=== PATIENT | female | born 1985 | race American Indian/Alaskan Native ===

== ENCOUNTER 2019-01-23 09:13 | Emergency (ER) | payer OTHER ==
[2019-01-23] MEDS ORDERED: APRESOLINE IV ONE (10:38)
--- NOTE | 2019-01-23 10:45 | Emergency Department Report ---
ED Headache HPI - General Chief Complaint: Headache Stated Complaint: HEADACHE/DIZZINESS Time Seen by Provider: 01/23/19 10:26 Source: patient Exam Limitations: no limitations - History of Present Illness Initial Comments: Patient is a 33-year-old female that presents emergency with complaints of a headache. She states had been going on for 4 days and is worsening. Patient is also complaining of dizziness. Patient denies pain in her neck. Patient denies change in her headache with movement of her head and neck. Patient denies fever and chills. Patient states the pain is left occipital. Patient states the pain is not rating. Patient states the pain is 10 out of 10. Patient states she has tried ibuprofen and Tylenol with minimal relief. Patient denies blurred vision. Timing/Duration: constant, increasing Quality: severe Head Injury Location: occipital Recent Head Trauma: no recent headache/trauma, chronic headaches Modifying Factors: improves with: medication, rest Associated Symptoms: denies symptoms, nausea/vomiting. denies: confusion, fatigue, facial pain, fever/chills, flushing, loss of consciousness Allergies/Adverse Reactions: Allergies No Known Allergies Allergy (Unverified 03/19/15 10:00) Home Medications: Ambulatory Orders Docusate Sodium [Colace] 100 mg PO BID PRN #30 capsule 03/19/15 Magnesium Hydroxide [Milk of Magnesia] 2,400 mg PO QDAY #1 bottle 03/19/15 Psyllium Husk [Metamucil] 0.52 gm PO BID #30 capsule 03/19/15 methylPREDNISolone [Medrol] 4 mg PO DAILY 6 Days #1 tab.ds.pk 01/23/19 ED Review of Systems ROS: Stated complaint: HEADACHE/DIZZINESS Other details as noted in HPI Constitutional: denies: chills, fever Eyes: denies: eye pain, eye discharge, vision change ENT: denies: ear pain, throat pain Respiratory: denies: cough, shortness of breath, wheezing Cardiovascular: denies: chest pain, palpitations Endocrine: no symptoms reported Gastrointestinal: denies: abdominal pain, nausea, diarrhea Genitourinary: denies: urgency, dysuria, discharge Musculoskeletal: denies: back pain, joint swelling, arthralgia Skin: denies: rash, lesions Neurological: headache. denies: weakness, paresthesias Psychiatric: denies: anxiety, depression Hematological/Lymphatic: denies: easy bleeding, easy bruising ED Past Medical Hx - Past Medical History Previous Medical History?: Yes Hx Hypertension: Yes - Surgical History Past Surgical History?: Yes Hx Cholecystectomy: Yes Additional Surgical History: gallbladder removed - Family History Family history: no significant - Social History Smoking Status: Never Smoker Substance Use Type: Prescribed - Medications Home Medications: Home Medications Medication Instructions Recorded Confirmed Last Taken Type Docusate Sodium [Colace] 100 mg PO BID PRN #30 capsule 03/19/15 Unknown Rx Magnesium Hydroxide [Milk of 2,400 mg PO QDAY #1 bottle 03/19/15 Unknown Rx Magnesia] Psyllium Husk [Metamucil] 0.52 gm PO BID #30 capsule 03/19/15 Unknown Rx methylPREDNISolone [Medrol] 4 mg PO DAILY 6 Days #1 tab.ds.pk 01/23/19 Unknown Rx ED Physical Exam - General Limitations: No Limitations General appearance: alert, in no apparent distress - Head Head exam: Present: atraumatic, normocephalic - Eye Eye exam: Present: normal appearance, PERRL Pupils: Present: normal accommodation - ENT ENT exam: Present: mucous membranes moist, other (enlarged nasal turbinates. Left greater than right) - Neck Neck exam: Present: normal inspection - Respiratory Respiratory exam: Present: normal lung sounds bilaterally. Absent: respiratory distress - Cardiovascular Cardiovascular Exam: Present: regular rate, normal rhythm. Absent: systolic murmur, diastolic murmur, rubs, gallop - GI/Abdominal GI/Abdominal exam: Present: soft, normal bowel sounds. Absent: distended, tenderness, guarding - Extremities Exam Extremities exam: Present: normal inspection - Back Exam Back exam: Present: normal inspection - Neurological Exam Neurological exam: Present: alert, oriented X3 - Psychiatric Psychiatric exam: Present: normal affect, normal mood - Skin Skin exam: Present: warm, dry, intact, normal color. Absent: rash ED Course Vital Signs 01/23/19 01/23/19 01/23/19 09:18 10:28 10:30 Temperature 98.7 F Pulse Rate 78 Respiratory 18 Rate Blood Pressure 204/102 Blood Pressure [Left] O2 Sat by Pulse 99 100 98 Oximetry 01/23/19 01/23/19 01/23/19 10:45 11:01 11:15 Temperature Pulse Rate Respiratory Rate Blood Pressure 196/99 196/99 196/99 Blood Pressure [Left] O2 Sat by Pulse 100 100 100 Oximetry 01/23/19 01/23/19 01/23/19 11:31 11:45 11:51 Temperature 98.4 F Pulse Rate 57 L Respiratory 16 Rate Blood Pressure 196/99 140/64 Blood Pressure 140/64 [Left] O2 Sat by Pulse 100 100 100 Oximetry 01/23/19 01/23/19 01/23/19 11:53 12:01 12:15 Temperature Pulse Rate 57 L Respiratory Rate Blood Pressure 140/64 140/64 140/64 Blood Pressure [Left] O2 Sat by Pulse 99 99 Oximetry 01/23/19 13:22 Temperature Pulse Rate 63 Respiratory 15 Rate Blood Pressure Blood Pressure 153/80 [Left] O2 Sat by Pulse 100 Oximetry - Reevaluation(s) Reevaluation #1: Initial evaluation done. Patient found have hypertension. Patient will be given 20 of hydralazine. 01/23/19 10:26 Patient's blood pressure improved on its own. We will hold hydralazine treat patient's headache with IV meds. 01/23/19 11:37 Patient's pain is now at 4 out of 10. She states dizziness has resolved. Patient states she is able to ambulate and move around without problem. 01/23/19 13:10 - Reevaluation #2: Discussed all results with patient. Patient is stable for discharge. Patient will be discharged home. Patient given discharge instructions. Patient voiced understanding of discharge instructions. 01/23/19 13:54 ED Medical Decision Making - Lab Data Result diagrams: 01/23/19 11:02 01/23/19 11:02 - Radiology Data Radiology results: report reviewed PROCEDURE: CT HEAD/BRAIN WO CON TECHNIQUE: Axial images of the head obtained without intravenous contrast. HISTORY: armstrong COMPARISONS: No priors FINDINGS: Ventricles are normal in size and configuration. There is no evidence of intracranial mass or mass effect. No intracranial hemorrhage or hematoma. No edema or sulcal effacement. The calvarium is intact. Visualized paranasal sinuses and mastoid air cells are clear. IMPRESSION: No acute intracranial pathology.. - Medical Decision Making H&H 33-year-old female Emergency room with complaints of headache. Labs unremarkable. Patient's CT negative. Patient's clinical findings consistent with a sinus headache and sinus inflammation. Patient will be given a steroid pack. Patient responded well to therapy. Patient's headache improved with wilfred atment. Patient stable for discharge. Patient given discharge instructions. - Differential Diagnosis headache. Sinus headache. Sinus inflammation. Critical care attestation.: If time is entered above; I have spent that time in minutes in the direct care of this critically ill patient, excluding procedure time. ED Disposition Clinical Impression: Dizziness, Sinus headache Headache Qualifiers: Headache type: unspecified Headache chronicity pattern: acute headache Intractability: not intractable Qualified Code(s): R51 - Headache Disposition: DC- TO HOME OR SELFCARE Is pt being admited?: No Does the pt Need Aspirin: No Condition: Stable Instructions: Sinusitis (ED), Acute Headache (ED) Additional Instructions: Patient follow up with primary care in 2-3 days. Patient to return to ER if condition worsens. Patient to take Tylenol or ibuprofen when necessary for pain. Patient to rest. Patient to take meds as directed. Continue all home medications. Patient to increase water. Prescriptions: methylPREDNISolone [Medrol] 4 mg PO DAILY 6 Days #1 tab.ds.pk Referrals: PRIMARY [facility] [Referring] - 2-3 Days Time of Disposition: 13:53
[2019-01-23 11:55] LABS: Hemoglobin 14.4 gm/dl (10.1-14.3); Mean Corpuscular HGB Conc 35 % (30-34); Mean Corpuscular Volume 87 fl (79-97); Platelet Count 337 K/mm3 (140-440); Red Blood Count 4.73 M/mm3 (3.65-5.03); Red Cell Distribution Width 14.4 % (13.2-15.2)
[2019-01-23] MEDS ORDERED: SOLU-Medrol IV ONE (12:01)
[2019-01-23] MEDS ORDERED: PHENERGAN PO ONE (12:01)
[2019-01-23] MEDS ORDERED: BENADRYL IV ONE (12:01)
[2019-01-23 12:22] LABS: Alanine Aminotransferase 13 units/L (7-56); Albumin 4.2 g/dL (3.9-5); BUN/Creatinine Ratio 20; Blood Urea Nitrogen 10 mg/dL (7-17); Hemolysis Index 3
--- NOTE | 2019-01-23 13:06 | Cat Scan Report ---
PROCEDURE: CT HEAD/BRAIN WO CON TECHNIQUE: Axial images of the head obtained without intravenous contrast. HISTORY: armstrong COMPARISONS: No priors FINDINGS: Ventricles are normal in size and configuration. There is no evidence of intracranial mass or mass effect. No intracranial hemorrhage or hematoma. No edema or sulcal effacement. The calvarium is intact. Visualized paranasal sinuses and mastoid air cells are clear. IMPRESSION: No acute intracranial pathology.. This document is electronically signed by Bryan Ria MD., Jan 23 2019 01:04:41 PM ET
[2019-01-23 13:22] VITALS: BP 153/80
== END 2019-01-23 14:17 | disposition home or self-care (01) ==
LOC: ED 09:13
DX: R51 Headache (principal); R42 Dizziness and giddiness; I10 Essential (primary) hypertension; Z90.49 Acquired absence of other specified parts of digestive tract; Z79.899 Other long term (current) drug therapy
CPT/HCPCS: 36415; 70450; 80053; 84703; 85027; 93005; 93010; 96374; 96375; 99284; J1200; J2930; Q0169; J0360

== ENCOUNTER 2019-01-26 14:33 | Emergency (ER) | payer SELFPAY ==
[2019-01-26] MEDS ORDERED: NORCO 10/325 PO ONE (14:42)
--- NOTE | 2019-01-26 14:43 | Emergency Department Report ---
Blank Doc - Documentation Documentation: This is a 33-year-old female that presents with dizziness. Denies any headache This initial assessment/diagnostic orders/clinical plan/treatment(s) is/are subject to change based on patient's health status, clinical progression and re- assessment by fellow clinical providers in the ED. Further treatment and workup at subsequent clinical providers discretion. Patient/guardians urged not to elope from the ED as their condition may be serious if not clinically assessed and managed. Initial orders include: 1- Patient sent to [facility] for further evaluation and treatment. 2- labs 3- orthostatic vitals
[2019-01-26 14:59] LABS: Basophils % (Auto) 0.8 % (0.0-1.8); Eosinophils # (Auto) 0.1 K/mm3 (0.0-0.4); Eosinophils % (Auto) 0.9 % (0.0-4.3); Hemoglobin 15.7 gm/dl (10.1-14.3); Lymphocytes # (Auto) 1.7 K/mm3 (1.2-5.4); Mean Corpuscular HGB Conc 34 % (30-34); Mean Corpuscular Volume 88 fl (79-97); Monocytes # (Auto) 0.6 K/mm3 (0.0-0.8); Monocytes % (Auto) 9.4 % (0.0-7.3); Platelet Count 369 K/mm3 (140-440); Red Blood Count 5.24 M/mm3 (3.65-5.03); Red Cell Distribution Width 14.3 % (13.2-15.2)
[2019-01-26 15:15] LABS: BUN/Creatinine Ratio 26; Blood Urea Nitrogen 18 mg/dL (7-17); Hemolysis Index 9
[2019-01-26] MEDS ORDERED: ANTIVERT PO ONE (16:01)
--- NOTE | 2019-01-26 16:06 | Emergency Department Report ---
ED General Adult HPI - General Chief complaint: Medical Clearance Stated complaint: DIZZINESS Time Seen by Provider: 01/26/19 14:39 Source: patient Mode of arrival: Ambulatory Limitations: No Limitations - History of Present Illness Initial comments: Patient presents to the emergency department with a chief complaint of dizziness. The patient states she was here 3 days ago and diagnosed with a sinus headache and given a Medrol Dosepak which is sent with her headaches but she now is dizzy. Patient states that any movement of her head or standing up quickly makes her dizzy and describes the room spinning. Patient denies any chest pain, for his breath, slurred speech, weakness. -: Sudden Radiation: non-radiation Severity scale (0 -10): 0 Consistency: intermittent Improves with: rest Worsens with: movement Associated Symptoms: denies other symptoms Treatments Prior to Arrival: none - Related Data Previous Rx's Medication Instructions Recorded Last Taken Type Docusate Sodium [Colace] 100 mg PO BID PRN #30 capsule 03/19/15 Unknown Rx Magnesium Hydroxide [Milk of 2,400 mg PO QDAY #1 bottle 03/19/15 Unknown Rx Magnesia] Psyllium Husk [Metamucil] 0.52 gm PO BID #30 capsule 03/19/15 Unknown Rx Ibuprofen 800 mg PO Q8HR PRN #30 tablet 01/23/19 Unknown Rx methylPREDNISolone [Medrol] 4 mg PO DAILY 6 Days #1 tab.ds.pk 01/23/19 Unknown Rx Meclizine [Antivert] 25 mg PO TID PRN #30 tablet 01/26/19 Unknown Rx Allergies Allergy/AdvReac Type Severity Reaction Status Date / Time No Known Allergies Allergy Unverified 03/19/15 10:00 ED Review of Systems ROS: Stated complaint: DIZZINESS Other details as noted in HPI Comment: All other systems reviewed and negative Constitutional: denies: chills, fever Eyes: denies: eye pain, eye discharge, vision change ENT: denies: ear pain, throat pain Respiratory: denies: cough, shortness of breath, wheezing Cardiovascular: denies: chest pain, palpitations Endocrine: no symptoms reported Gastrointestinal: denies: abdominal pain, nausea, diarrhea Genitourinary: denies: urgency, dysuria, discharge Musculoskeletal: denies: back pain, joint swelling, arthralgia Skin: denies: rash, lesions Neurological: vertigo. denies: headache, weakness, paresthesias Psychiatric: denies: anxiety, depression Hematological/Lymphatic: denies: easy bleeding, easy bruising ED Past Medical Hx - Past Medical History Previous Medical History?: Yes Hx Hypertension: Yes - Surgical History Hx Cholecystectomy: Yes Additional Surgical History: gallbladder removed - Social History Smoking Status: Never Smoker Substance Use Type: None - Medications Home Medications: Home Medications Medication Instructions Recorded Confirmed Last Taken Type Docusate Sodium [Colace] 100 mg PO BID PRN #30 capsule 03/19/15 Unknown Rx Magnesium Hydroxide [Milk of 2,400 mg PO QDAY #1 bottle 03/19/15 Unknown Rx Magnesia] Psyllium Husk [Metamucil] 0.52 gm PO BID #30 capsule 03/19/15 Unknown Rx Ibuprofen 800 mg PO Q8HR PRN #30 tablet 01/23/19 Unknown Rx methylPREDNISolone [Medrol] 4 mg PO DAILY 6 Days #1 tab.ds.pk 01/23/19 Unknown Rx Meclizine [Antivert] 25 mg PO TID PRN #30 tablet 01/26/19 Unknown Rx ED Physical Exam - General Limitations: No Limitations General appearance: alert, in no apparent distress - Head Head exam: Present: atraumatic, normocephalic - Eye Eye exam: Present: normal appearance, PERRL, EOMI - ENT ENT exam: Present: mucous membranes moist, TM's normal bilaterally, normal external ear exam - Neck Neck exam: Present: normal inspection - Respiratory Respiratory exam: Present: normal lung sounds bilaterally. Absent: respiratory distress, wheezes, rales - Cardiovascular Cardiovascular Exam: Present: regular rate, normal rhythm. Absent: systolic murmur, diastolic murmur, rubs, gallop - GI/Abdominal GI/Abdominal exam: Present: soft, normal bowel sounds. Absent: distended, tenderness - Extremities Exam Extremities exam: Present: normal inspection - Back Exam Back exam: Present: normal inspection - Neurological Exam Neurological exam: Present: alert, oriented X3, CN II-XII intact, other (able to re-create symptoms with rapid eye and head movement). Absent: motor sensory deficit - Psychiatric Psychiatric exam: Present: normal affect, normal mood - Skin Skin exam: Present: warm, dry, intact, normal color. Absent: rash ED Course Vital Signs 01/26/19 14:38 Temperature 98.2 F Pulse Rate 70 Respiratory 16 Rate Blood Pressure 166/88 O2 Sat by Pulse 98 Oximetry ED Medical Decision Making - Lab Data Result diagrams: 01/26/19 14:48 01/26/19 14:48 Lab Results 01/26/19 01/26/19 01/26/19 Range/Units 14:48 14:48 14:48 WBC 6.0 (4.5-11.0) K/mm3 RBC 5.24 H (3.65-5.03) M/mm3 Hgb 15.7 H (10.1-14.3) gm/dl Hct 46.0 H (30.3-42.9) % MCV 88 (79-97) fl MCH 30 (28-32) pg MCHC 34 (30-34) % RDW 14.3 (13.2-15.2) % Plt Count 369 (140-440) K/mm3 Lymph % (Auto) 28.0 (13.4-35.0) % [place] % (Auto) 9.4 H (0.0-7.3) % Eos % (Auto) 0.9 (0.0-4.3) % Baso % (Auto) 0.8 (0.0-1.8) % Lymph # 1.7 (1.2-5.4) K/mm3 [place] # 0.6 (0.0-0.8) K/mm3 Eos # 0.1 (0.0-0.4) K/mm3 Baso # 0.0 (0.0-0.1) K/mm3 Seg Neutrophils % 60.9 (40.0-70.0) % Seg Neutrophils # 3.7 (1.8-7.7) K/mm3 Sodium 139 (137-145) mmol/L Potassium 3.7 (3.6-5.0) mmol/L Chloride 99.5 (98-107) mmol/L Carbon Dioxide 25 (22-30) mmol/L Anion Gap 18 mmol/L BUN 18 H (7-17) mg/dL Creatinine 0.7 (0.7-1.2) mg/dL Estimated GFR > 60 ml/min BUN/Creatinine Ratio 26 % Glucose 139 H (65-100) mg/dL Calcium 9.0 (8.4-10.2) mg/dL HCG, Qual Negative (Negative) - Radiology Data Radiology results: report reviewed - Medical Decision Making CT reviewed from 01/23/2019 Patient states a Medrol Dosepak is actually helped her headaches Reviewing the side effects for Medrol shows that it can cause vertigo Critical care attestation.: If time is entered above; I have spent that time in minutes in the direct care of this critically ill patient, excluding procedure time. ED Disposition Clinical Impression: Vertigo Disposition: DC-01 TO HOME OR SELFCARE Is pt being admited?: No Does the pt Need Aspirin: No Condition: Stable Instructions: Vertigo (ED) Additional Instructions: return if worse Prescriptions: Meclizine [Antivert] 25 mg PO TID PRN #30 tablet PRN Reason: Vertigo Referrals: [facility] [Provider Group] - 3-5 Days [facility] [Provider Group] - 3-5 Days Time of Disposition: 16:04
[2019-01-26 16:17] VITALS: BP 156/81
== END 2019-01-26 16:16 | disposition home or self-care (01) ==
LOC: ED 14:33
DX: R42 Dizziness and giddiness (principal); I10 Essential (primary) hypertension
CPT/HCPCS: 36415; 80048; 84703; 85025; 99283

== ENCOUNTER 2019-01-31 18:18 | Emergency (ER) | payer SELFPAY ==
[2019-01-31] MEDS ORDERED: CATAPRES PO ONE (18:27)
--- NOTE | 2019-01-31 18:27 | Emergency Department Report ---
Blank Doc - Documentation Documentation: This is a 33-year-old female that presents with headache and uncontrolled HTN. This initial assessment/diagnostic orders/clinical plan/treatment(s) is/are subject to change based on patient's health status, clinical progression and re- assessment by fellow clinical providers in the ED. Further treatment and workup at subsequent clinical providers discretion. Patient/guardians urged not to elope from the ED as their condition may be serious if not clinically assessed and managed. Initial orders include: 1- Patient sent to [facility] for further evaluation and treatment. 2- labs 3- CT head 4- Catapress 5- RN to repeat vitals q30 mins
[2019-01-31 19:27] LABS: Basophils # (Auto) 0.1 K/mm3 (0.0-0.1); Basophils % (Auto) 0.8 % (0.0-1.8); Eosinophils # (Auto) 0.1 K/mm3 (0.0-0.4); Eosinophils % (Auto) 1.6 % (0.0-4.3); Hematocrit 38.8 % (30.3-42.9); Hemoglobin 13.8 gm/dl (10.1-14.3); Lymphocytes # (Auto) 1.2 K/mm3 (1.2-5.4); Lymphocytes % (Auto) 17.9 % (13.4-35.0); Mean Corpuscular HGB Conc 36 % (30-34); Mean Corpuscular Volume 88 fl (79-97); Monocytes # (Auto) 0.8 K/mm3 (0.0-0.8); Platelet Count 304 K/mm3 (140-440); Red Blood Count 4.42 M/mm3 (3.65-5.03); Red Cell Distribution Width 14.3 % (13.2-15.2)
[2019-01-31 19:46] LABS: BUN/Creatinine Ratio 23; Blood Urea Nitrogen 14 mg/dL (7-17); Hemolysis Index 24
[2019-01-31] MEDS ORDERED: TORADOL IM ONE (20:43)
--- NOTE | 2019-01-31 21:10 | Emergency Department Report ---
ED Headache HPI - General Chief Complaint: Headache Stated Complaint: DIZZY/HEADACHE SEVERE Time Seen by Provider: 01/31/19 18:25 Source: patient Exam Limitations: no limitations - History of Present Illness Initial Comments: 33-year-old female with a past medical history of hypertension and obesity presents to the hospital complaining of headache and elevated blood pressure. 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 She checked her blood pressure and it was extremely high. Patient states she's been compliant with her metoprolol 100 mg twice a day losartan 100 mg daily. She also denies blurred vision, nausea, vomiting, focal weakness, or focal numbness. She received clonidine 0.2 mg in the waiting room with some reduction in blood pressure. She states her headache has decreased from a 10/10 to a 7/10 in intensity. This is patient's third visit here this month for elevated blood pressure. She had unremarkable CT scan on initial basis on January 23. During her visit she has been treated with Medrol Dosepak for possible sinus headache end and meclizine for possible vertigo. Patient states she is scheduled for her first follow-up visit with [facility] in 2 days. Prior to that she was [employer] affiliated the lost her [employer] insurance. Allergies/Adverse Reactions: Allergies levofloxacin [From Levaquin] Adverse Reaction (Verified 01/31/19 20:45) Angioedema Home Medications: Ambulatory Orders Docusate Sodium [Colace] 100 mg PO BID PRN #30 capsule 03/19/15 Magnesium Hydroxide [Milk of Magnesia] 2,400 mg PO QDAY #1 bottle 03/19/15 Psyllium Husk [Metamucil] 0.52 gm PO BID #30 capsule 03/19/15 Ibuprofen 800 mg PO Q8HR PRN #30 tablet 01/23/19 methylPREDNISolone [Medrol] 4 mg PO DAILY 6 Days #1 tab.ds.pk 01/23/19 Meclizine [Antivert] 25 mg PO TID PRN #30 tablet 01/26/19 Spironolactone [Aldactone] 12.5 mg PO QDAY #30 tablet 01/31/19 ED Review of Systems ROS: Stated complaint: DIZZY/HEADACHE SEVERE Other details as noted in HPI Comment: All other systems reviewed and negative ED Past Medical Hx - Past Medical History Previous Medical History?: Yes Hx Hypertension: Yes - Surgical History Past Surgical History?: Yes Hx Cholecystectomy: Yes Additional Surgical History: gallbladder removed - Social History Smoking Status: Never Smoker Substance Use Type: None - Medications Home Medications: Home Medications Medication Instructions Recorded Confirmed Last Taken Type Docusate Sodium [Colace] 100 mg PO BID PRN #30 capsule 03/19/15 Unknown Rx Magnesium Hydroxide [Milk of 2,400 mg PO QDAY #1 bottle 03/19/15 Unknown Rx Magnesia] Psyllium Husk [Metamucil] 0.52 gm PO BID #30 capsule 03/19/15 Unknown Rx Ibuprofen 800 mg PO Q8HR PRN #30 tablet 01/23/19 Unknown Rx methylPREDNISolone [Medrol] 4 mg PO DAILY 6 Days #1 tab.ds.pk 01/23/19 Unknown Rx Meclizine [Antivert] 25 mg PO TID PRN #30 tablet 01/26/19 Unknown Rx Spironolactone [Aldactone] 12.5 mg PO QDAY #30 tablet 01/31/19 Unknown Rx ED Physical Exam - General Limitations: No Limitations - Other Other exam information: General: No limitations, patient is alert in no acute distress Head exam: Atraumatic, normocephalic Eyes exam: Normal appearance, pupils equal reactive to light, extraocular movements intact ENT: Moist mucous membrane, normal oropharynx Neck exam: Normal inspection, full range of motion, no meningismus nontender Respiratory exam: Clear to auscultation bilateral, no wheezes, rales, crackles Cardiovascular: Normal rate and rhythm, normal heart sounds Abdomen: Soft, nondistended, and nontender, with normal bowel sounds, no rebound, or guarding Extremity: Full range of motion normal inspection no deformity Back: Normal Inspection, full range of motion, no tenderness Neurologic: Alert, oriented x3, cranial nerves intact, no motor or sensory deficit, [id number] function intact Psychiatric: normal affect, normal mood Skin: Warm, dry, intact ED Course Vital Signs 01/31/19 01/31/19 01/31/19 18:32 18:36 20:35 Temperature 97.9 F Pulse Rate 91 H 91 H 85 Respiratory 18 Rate Blood Pressure 223/111 223/111 Blood Pressure 175/102 [Left] O2 Sat by Pulse 99 Oximetry 01/31/19 01/31/19 20:43 22:25 Temperature Pulse Rate 80 81 Respiratory 19 Rate Blood Pressure Blood Pressure 164/87 153/86 [Left] O2 Sat by Pulse 98 Oximetry - Consultations Consultation #1: 01/31/19 20:52 Case discussed with metal fabricator apprentice business operations specialist Dr. Ceron. Recommends either adding clonidine 0.1 mg twice a day or Aldactone 12.5 mg daily for additional blood pressure control. ED Medical Decision Making - Lab Data Result diagrams: 01/31/19 19:01/31/19 19: Lab Results 01/31/19 01/31/19 01/31/19 Range/Units 19: 19: 19: WBC 6.9 (4.5-11.0) K/mm3 RBC 4.42 (3.65-5.03) M/mm3 Hgb 13.8 (10.1-14.3) gm/dl Hct 38.8 (30.3-42.9) % MCV 88 (79-97) fl MCH 31 (28-32) pg MCHC 36 H (30-34) % RDW 14.3 (13.2-15.2) % Plt Count 304 (140-440) K/mm3 Lymph % (Auto) 17.9 (13.4-35.0) % [place] % (Auto) 11.0 H (0.0-7.3) % Eos % (Auto) 1.6 (0.0-4.3) % Baso % (Auto) 0.8 (0.0-1.8) % Lymph # 1.2 (1.2-5.4) K/mm3 [place] # 0.8 (0.0-0.8) K/mm3 Eos # 0.1 (0.0-0.4) K/mm3 Baso # 0.1 (0.0-0.1) K/mm3 Seg Neutrophils % 68.7 (40.0-70.0) % Seg Neutrophils # 4.7 (1.8-7.7) K/mm3 Sodium 138 (137-145) mmol/L Potassium 3.7 (3.6-5.0) mmol/L Chloride 99.2 (98-107) mmol/L Carbon Dioxide 25 (22-30) mmol/L Anion Gap 18 mmol/L BUN 14 (7-17) mg/dL Creatinine 0.6 L (0.7-1.2) mg/dL Estimated GFR > 60 ml/min BUN/Creatinine Ratio 23 % Glucose 105 H (65-100) mg/dL Calcium 9.0 (8.4-10.2) mg/dL HCG, Qual Negative (Negative) - Radiology Data Radiology results: report reviewed PROCEDURE: CT HEAD/BRAIN WO CON TECHNIQUE: Computerized tomography of the head was performed without contrast material. CT DOSE LENGTH PRODUCT: 805.4 mGycm HISTORY: headache COMPARISONS: January 23, 2019 . FINDINGS: Skull and scalp: Normal . Paranasal sinuses: Normal . Ventricles and subarachnoid spaces: Normal . Cerebrum: No evidence of hemorrhage, acute infarction or mass . Cerebellum and brainstem: No evidence of hemorrhage, acute infarction or mass . Vasculature: Normal . Other: None . ASPECTS: 10 IMPRESSION: Normal Examination . - Medical Decision Making BP improved blood pressure reduction. Patient received further reduction with Toradol. No signs of hypertensive emergency. Once again CT head and renal function were unremarkable. Case discussed with metal fabricator apprentice. Aldactone 12.5 mg daily to be added to regimen with planned follow-up as scheduled this week. Patient does have maxillary sinus tenderness complains that her symptoms flared up when she DC'd the Medrol Dosepak. She is having intermittent sinus pressure and nasal congestion for the last 2 weeks. Recommended [id number] Flonase and a nonsedating antihistamine that does not contain Sudafed. No fever reported. - Differential Diagnosis intracranial hemorrhage, hypertensive encephalopathy, noncompliance Critical Care Time: No Critical care attestation.: If time is entered above; I have spent that time in minutes in the direct care of this critically ill patient, excluding procedure time. ED Disposition Clinical Impression: Headache, Uncontrolled hypertension Disposition: DC-01 TO HOME OR SELFCARE Is pt being admited?: No Condition: Stable Instructions: Acute Headache (ED), Hypertension (ED) Additional Instructions: Take the medication as prescribed. Follow up with your doctor or the clinic /doctor provided. Return if symptoms worsen as indicated by your discharge instructions Prescriptions: Spironolactone [Aldactone] 12.5 mg PO QDAY #30 tablet Referrals: BALDEMAR OLIVA MD [Primary Care Provider] - 3-5 Days Time of Disposition: 23:04
--- NOTE | 2019-01-31 21:13 | Cat Scan Report ---
PROCEDURE: CT HEAD/BRAIN WO CON TECHNIQUE: Computerized tomography of the head was performed without contrast material. CT DOSE LENGTH PRODUCT: 805.4 mGycm HISTORY: headache COMPARISONS: January 23, 2019 . FINDINGS: Skull and scalp: Normal . Paranasal sinuses: Normal . Ventricles and subarachnoid spaces: Normal . Cerebrum: No evidence of hemorrhage, acute infarction or mass . Cerebellum and brainstem: No evidence of hemorrhage, acute infarction or mass . Vasculature: Normal . Other: None . ASPECTS: 10 IMPRESSION: Normal Examination . This document is electronically signed by Tacho Huang MD., Jan 31 2019 09:11:16 PM ET
[2019-01-31 23:58] VITALS: BP 143/77
== END 2019-02-01 00:05 | disposition home or self-care (01) ==
LOC: ED 18:18
DX: I10 Essential (primary) hypertension (principal); Z90.49 Acquired absence of other specified parts of digestive tract; Z79.899 Other long term (current) drug therapy; Z88.1 Allergy status to other antibiotic agents
CPT/HCPCS: 36415; 70450; 80048; 84703; 85025; 96372; 99284; J1885